=== PATIENT | female | born 1955 | race African-American/Black ===

== ENCOUNTER → 2017-02-12 | Outpatient (CLI) | payer OTHER, BC | END | disposition home or self-care (01) | LOC: CFH 07:46 | PROVIDERS: ATTEND Family Medicine | DX: Z12.31 Encounter for screening mammogram for malignant neoplasm of breast (principal); Z80.3 Family history of malignant neoplasm of breast | CPT/HCPCS: G0202 ==

== ENCOUNTER → 2018-11-13 | Outpatient (CLI) | payer OTHER, BC | END | disposition home or self-care (01) | LOC: CFH 08:09 | PROVIDERS: ATTEND Physician Assistant | DX: Z12.31 Encounter for screening mammogram for malignant neoplasm of breast (principal) | CPT/HCPCS: 77067 ==